=== PATIENT | female | born 1935 | race Asian ===

== ENCOUNTER 2017-04-08 23:50 | Emergency (ER) | payer MEDICARE, OTHER ==
[~2017-04-08] VITALS: Ht 152.4 cm; Wt 38.0 kg
[~2017-04-08 23:50] MED LIST: ASPI-556 PO; ATOR20TA86 PO; METF500T4 PO; NACL1 PO; OLME20TA14 PO; OSCD250 PO; TRAZ-144 PO
[2017-04-09] MEDS ORDERED: HYDR25TA PO ×2 (00:05→19:42)
[2017-04-09] MEDS ORDERED: NACL1 PO (00:05)
[2017-04-09 00:12] LABS: GLUCOSE,POINT OF CARE 192 MG/DL (70-110)
[2017-04-09 01:35] VITALS: BP 144/96
[2017-04-09] MEDS ORDERED: LORazepam 1 MG TABLET PO ONE (02:30)
[2017-04-09] MEDS ORDERED: ATOR20TA86 PO (19:42)
[2017-04-09] MEDS ORDERED: OLME20TA14 PO (19:42)
== END 2017-04-09 03:00 | disposition home or self-care (01) ==
LOC: EMS 23:52
DX: G47.00 Insomnia, unspecified (principal); E11.9 Type 2 diabetes mellitus without complications; I10 Essential (primary) hypertension; E78.00 Pure hypercholesterolemia, unspecified; Z79.82 Long term (current) use of aspirin
CPT/HCPCS: 82962; 99282